=== PATIENT | female | born 1950 | race Caucasian/White ===

== ENCOUNTER 2016-09-29 12:36 | Observation (INO) | payer OTHER ==
[2016-09-29] MEDS ORDERED: Ondansetron INJ* 2 MG/ML VIAL IV ONE (13:31)
[2016-09-29] MEDS ORDERED: Pantoprazole IV* 40 MG IV ONE (13:31)
[2016-09-29] MEDS: NS 0.9% 1000 ML* 2,000 ML IV ONE (13:52)
[2016-09-29 13:56] LABS: Hematocrit 46 % (35-47); Hemoglobin 15.6 g/dl (12.0-16.0); Mean Corpuscular HGB Conc 34 g/dl (31-36); Mean Corpuscular Hemoglobin 30 pg (27-31); Mean Corpuscular Volume 89 fL (80-97); Mean Platelet Volume 8 um3 (7.4-10.4); Red Blood Count 5.18 10^6/ul (4.0-5.4); Red Cell Distribution Width 13 % (10.5-15)
[2016-09-29 14:09] LABS: Albumin 3.9 g/dL (3.2-5.2); C Reactive Protein 25.01 mg/L (< 5.00); Calcium 9.9 mg/dL (8.6-10.3); EGFR African American 70.9 (>60); EGFR Non-African American 55.1 (>60); Globulin 3.6 g/dL (2-4); Potassium 3.2 mmol/L (3.5-5.0); Total Bilirubin 1.3 mg/dL (0.2-1.0); Total Protein 7.5 g/dL (6.4-8.9)
[2016-09-29 15:29] LABS: Urine Bilirubin Negative (Negative); Urine Glucose Negative (Negative); Urine Nitrite Negative (Negative)
--- NOTE | 2016-09-29 15:45 | RAD ---
INDICATION: Abdominal pain. Bloody diarrhea. COMPARISON: August 02, 2014 CT. TECHNIQUE: Multidetector CT images were obtained from the lung bases to the ischial tuberosities. Oral contrast administered. Assessment of the visceral limited without IV contrast. REPORT: Unremarkable visualized inferior thorax. Negative for CT abnormality of the liver or gallbladder. Moderately atrophic pancreas. Unremarkable spleen. Negative for CT abnormality of the upper GI, small bowel, or retrocecal appendix. Enteric contrast extends to the mid transverse colon. Severe contiguous water density mural thickening of the splenic flexure of the colon through the mid descending segment. Negative for associated proximal bowel dilatation to indicate bowel obstruction. Negative for pneumatosis. Moderate associated perienteric inflammatory change. No perienteric abscess or free air. Trace ascites at the LEFT abdomen and cul-de-sac. Normal adrenal glands. Unremarkable kidneys and ureters. Incompletely distended urinary bladder without gross abnormality. Unremarkable uterus and adnexal regions. Small calcified portal caval lymph node. Negative for lymphadenopathy. Mild calcific plaque of normal diameter abdominal aorta and iliac arteries. Physiologic distention of the IVC. Small Schmorl node endplate herniations at the superior endplates of the L3 and L4 vertebral bodies. No suspicious focal osseous lesions. IMPRESSION: Severe contiguous water density mural thickening of the splenic flexure of the colon through the mid descending segment new compared with the prior exam. Consider infectious colitis as well as acute inflammatory bowel disease or ischemia. No skip areas to favor Crohn's disease.
--- NOTE | 2016-09-29 16:07 | ED ---
Milan Abdi Erika, scribed for Herminio Coffman MD on 09/29/16 at 1448 . GI/ HPI - HPI Summary HPI Summary: Patient is a 66-year-old female presenting to the ED with a CC of blood in stool. Patient reports that yesterday morning, she developed diffuse abdominal cramping 20 minutes after waking up. About 50 minutes after that, she had a large amount of diarrhea. Patient states she was able to tolerate some PO intake yesterday, but she continued to have diarrhea. Patient also reports chills and diaphoresis yesterday, but denies known fever. Last night, she developed blood in stool with clots. Patient reports some clots are large. She states that now, she is only passing blood, not stool, and she has had 4-5 episodes of this today. Patient does report nausea, and states she vomited 1x. She denies lightheadedness and urinary symptoms. Patient denies recent Abx use and denies household exposure to diarrheal illness. She does report she was in [facility] earlier this month. Patient states she does not take blood thinner. Hx HTN - takes medication. Hx asymptomatic hemorrhoids. PSHx tubal ligation. Patient reports her most recent colonoscopy showed diverticulosis without diverticulitis. - History of Current Complaint Chief Complaint: EDAbdPain Time Seen by Provider: 09/29/16 13:16 Stated Complaint: ABD PAIN, Hx Obtained From: Patient Onset/Duration: Started Days Ago - 1 day, Atraumatic, Still Present Timing: Constant Severity: Moderate Pain Intensity: 8 Location of Pain: Diffuse Pain Characteristics: Cramping Associated Signs and Symptoms: Positive: Nausea, Vomiting, Bright Red Blood w/ Stool, Diarrhea, Diaphoresis, Chills. Negative: Dysuria, Lightheadedness Aggravating Factor(s): Nothing Alleviating Factor(s): Nothing - Allergy/Home Medications Allergies/Adverse Reactions: Allergies Allergy/AdvReac Type Severity Reaction Status Date / Time Amoxicillin [From Augmentin] Allergy SEVERE Verified 12/21/15 09:25 YEAST INFECTION Clavulanic Acid Allergy SEVERE Verified 12/21/15 09:25 [From Augmentin] YEAST INFECTION Codeine Allergy ITCHY Verified 12/21/15 09:25 Shellfish Allergy Allergy Itching Verified 12/21/15 09:25 BANDAID Allergy IRRITATION Uncoded 12/21/15 09:25 PMH/Surg Hx/FS Hx/Imm Hx Cardiovascular History: Reports: Hx Hypertension - CONTROL WITH MEDS Denies: Hx Pacemaker/ICD GI History: Reports: Hx Diverticulosis, Hx Gastroesophageal Reflux Disease - CONTROL WITH MEDICATION Musculoskeletal History: Reports: Hx Arthritis, Other Musculoskeletal History - DEGENERATIVE DISC DISEASE Sensory History: Reports: Hx Cataracts - BILATERAL, Hx Contacts or Glasses - GLASSES Denies: Hx Hearing Aid Opthamlomology History: Reports: Hx Cataracts - BILATERAL, Hx Contacts or Glasses - GLASSES Psychiatric History: Reports: Hx Depression - HX OF IN THE PAST-NO PROBLEMS CURRENTLY - Cancer History Cancer Type, Location and Year: BREAST Hx Chemotherapy: Yes - 1999 RIGHT BREAST Hx Radiation Therapy: Yes - 1999 RIGHT, 2007 LEFT - Surgical History Surgery Procedure, Year, and Place: TONSILLECTOMY, [facility] [place]. BILATERAL TUBAL LIGATION, [facility] [place]. 1984 MALIGNANT MELANOMA REMOVED LEFT ARM, [facility] [place]. 1998 RIGHT BREAST MASTECTOMY, [facility] [place] 1999 RIGHT SENTINEL LYMPH NODE EXCISION (CHEMO AND RADIATION), [facility] [place]. 2007 LEFT BREAST LUMPECTOMY WITH SENTINEL LYMPH NODE REMOVAL ( RADIATION), [facility] [place]. 2005 BASIL CELL CARCINOMA REMOVED FROM VERTEX SCALP, [facility] [place]. BILATERAL KNEES ARTHROSCOPIC SURGERY TO REPAIR MENISCAL TEARS, [facility] [place] Hx Anesthesia Reactions: Yes - WAKE UP VERY COLD WITH GENERALS Infectious Disease History: Denies: Traveled Outside the [place] in Last 30 Days - Family History Known Family History: Positive: Other - Breast CA - Social History Occupation: Employed Full-time Alcohol Use: Daily Alcohol Amount: 1 DRINK/D Substance Use Type: Reports: None, Marijuana Substance Use Comment - Amount & Last Used: OCCASION Hx Tobacco Use: Yes Smoking Status (MU): Heavy Every Day Tobacco Smoker Type: Cigarettes Amount Used/How Often: 1 PPD FOR 50 YEARS Length of Time of Smoking/Using Tobacco: 50 YEARS Have You Smoked in the Last Year: Yes Review of Systems Positive: Chills, Skin Diaphoresis Gastrointestinal: Other - blood in stool Positive: Abdominal Pain - cramping, Vomiting, Diarrhea, Nausea Negative: burning, dysuria, frequency All Other Systems Reviewed And Are Negative: Yes Physical Exam Triage Information Reviewed: Yes Vital Signs On Initial Exam: Initial Vitals Temp Pulse Resp BP Pulse Ox 96.8 F 72 16 138/58 98 09/29/16 12:42 09/29/16 12:42 09/29/16 12:42 09/29/16 12:42 09/29/16 12:42 Vital Signs Reviewed: Yes Appearance: Positive: Well-Appearing, No Pain Distress Skin: Positive: Warm, Skin Color Reflects Adequate Perfusion, Dry Head/Face: Positive: Normal Head/Face Inspection Eyes: Positive: EOMI, VICKY ENT: Positive: Normal ENT inspection Neck: Positive: Supple, Nontender Respiratory/Lung Sounds: Positive: Clear to Auscultation, Breath Sounds Present Cardiovascular: Positive: RRR Abdomen Description: Positive: Nontender, Soft Bowel Sounds: Positive: Present Musculoskeletal: Positive: Normal, Strength/ROM Intact Neurological: Positive: Normal, Sensory/Motor Intact, Alert, Oriented to Person Place, Time Psychiatric: Positive: Affect/Mood Appropriate Diagnostics - Vital Signs Vital Signs Temp Pulse Resp BP Pulse Ox 09/29/16 12:42 96.8 F 72 16 138/58 98 - Laboratory Lab Results: Lab Results 09/29/16 09/29/16 09/29/16 Range/Units 13:45 13:45 13:45 WBC 13.0 H (3.5-10.8) 10^3/ul RBC 5.18 (4.0-5.4) 10^6/ul Hgb 15.6 (12.0-16.0) g/dl Hct 46 (35-47) % MCV 89 (80-97) fL MCH 30 (27-31) pg MCHC 34 (31-36) g/dl RDW 13 (10.5-15) % Plt Count 249 (150-450) 10^3/ul MPV 8 (7.4-10.4) um3 Neut % (Auto) 81.9 (38-83) % Lymph % (Auto) 12.3 L (25-47) % [place]hur % (Auto) 5.2 (1-9) % Eos % (Auto) 0.1 (0-6) % Baso % (Auto) 0.5 (0-2) % Absolute Neuts (auto) 10.6 H (1.5-7.7) 10^3/ul Absolute Lymphs (auto) 1.6 (1.0-4.8) 10^3/ul Absolute Monos (auto) 0.7 (0-0.8) 10^3/ul Absolute Eos (auto) 0 (0-0.6) 10^3/ul Absolute Basos (auto) 0.1 (0-0.2) 10^3/ul Absolute Nucleated RBC 0.01 10^3/ul Nucleated RBC % 0 INR (Anticoag Therapy) 0.94 (0.89-1.11) APTT 30.5 (26.0-36.3) seconds Sodium 128 L (133-145) mmol/L Potassium 3.2 L (3.5-5.0) mmol/L Chloride 94 L (101-111) mmol/L Carbon Dioxide 29 (22-32) mmol/L Anion Gap 5 (2-11) mmol/L BUN 16 (6-24) mg/dL Creatinine 1.00 H (0.51-0.95) mg/dL Est GFR ( Amer) 70.9 (>60) Est GFR (Non-Af Amer) 55.1 (>60) BUN/Creatinine Ratio 16.0 (8-20) Glucose 117 H (70-100) mg/dL Lactic Acid (0.5-2.0) mmol/L Calcium 9.9 (8.6-10.3) mg/dL Total Bilirubin 1.30 H (0.2-1.0) mg/dL AST 12 L (13-39) U/L ALT 15 (7-52) U/L Alkaline Phosphatase 89 (34-104) U/L C-Reactive Protein 25.01 H (< 5.00) mg/L Total Protein 7.5 (6.4-8.9) g/dL Albumin 3.9 (3.2-5.2) g/dL Globulin 3.6 (2-4) g/dL Albumin/Globulin Ratio 1.1 (1-3) Lipase 13 (11.0-82.0) U/L Urine Color Urine Appearance Urine pH (5-9) Ur Specific Jber (1.010-1.030) Urine Protein (Negative) Urine Ketones (Negative) Urine Blood (Negative) Urine Nitrate (Negative) Urine Bilirubin (Negative) Urine Urobilinogen (Negative) Ur Leukocyte Esterase (Negative) Urine Glucose (Negative) Urine Ascorbic Acid (Negative) Blood Type Antibody Screen 09/29/16 09/29/16 09/29/16 Range/Units 13:45 13:45 15:15 WBC (3.5-10.8) 10^3/ul RBC (4.0-5.4) 10^6/ul Hgb (12.0-16.0) g/dl Hct (35-47) % MCV (80-97) fL MCH (27-31) pg MCHC (31-36) g/dl RDW (10.5-15) % Plt Count (150-450) 10^3/ul MPV (7.4-10.4) um3 Neut % (Auto) (38-83) % Lymph % (Auto) (25-47) % [place] % (Auto) (1-9) % Eos % (Auto) (0-6) % Baso % (Auto) (0-2) % Absolute Neuts (auto) (1.5-7.7) 10^3/ul Absolute Lymphs (auto) (1.0-4.8) 10^3/ul Absolute Monos (auto) (0-0.8) 10^3/ul Absolute Eos (auto) (0-0.6) 10^3/ul Absolute Basos (auto) (0-0.2) 10^3/ul Absolute Nucleated RBC 10^3/ul Nucleated RBC % INR (Anticoag Therapy) (0.89-1.11) APTT (26.0-36.3) seconds Sodium (133-145) mmol/L Potassium (3.5-5.0) mmol/L Chloride (101-111) mmol/L Carbon Dioxide (22-32) mmol/L Anion Gap (2-11) mmol/L BUN (6-24) mg/dL Creatinine (0.51-0.95) mg/dL Est GFR ( Amer) (>60) Est GFR (Non-Af Amer) (>60) BUN/Creatinine Ratio (8-20) Glucose (70-100) mg/dL Lactic Acid 1.0 (0.5-2.0) mmol/L Calcium (8.6-10.3) mg/dL Total Bilirubin (0.2-1.0) mg/dL AST (13-39) U/L ALT (7-52) U/L Alkaline Phosphatase (34-104) U/L C-Reactive Protein (< 5.00) mg/L Total Protein (6.4-8.9) g/dL Albumin (3.2-5.2) g/dL Globulin (2-4) g/dL Albumin/Globulin Ratio (1-3) Lipase (11.0-82.0) U/L Urine Color Yellow Urine Appearance Clear Urine pH 7.0 (5-9) Ur Specific Jber 1.006 L (1.010-1.030) Urine Protein Negative (Negative) Urine Ketones Negative (Negative) Urine Blood Negative (Negative) Urine Nitrate Negative (Negative) Urine Bilirubin Negative (Negative) Urine Urobilinogen Negative (Negative) Ur Leukocyte Esterase Negative (Negative) Urine Glucose Negative (Negative) Urine Ascorbic Acid * H (Negative) Blood Type A Positive Antibody Screen Negative Result Diagrams: 09/29/16 13:45 09/29/16 13:45 Lab Statement: Any lab studies that have been ordered have been reviewed, and results considered in the medical decision making process. - CT CT A/P W/O CT Interpretation Completed By: Radiologist - IMPRESSION: Severe contiguous water density mural thickening of the splenic flexure of the colon through the mid descending segment new compared with the prior exam. Consider infectious colitis as well as acute inflammatory bowel disease or ischemia. No skip areas to favor Crohn's disease. GIGU Course/Dx - Course Course Of Treatment: NO CRITICAL CARE TIME Assessment/Plan: WELL IN ED. ADMIT HOSPITALIST STABLE. - Diagnoses Provider Diagnoses: GI bleed, Abdominal pain - Physician Notifications Discussed Care Of Patient With: Dr. Silva (hospitalist) at 16:04 - agrees to admit Discharge - Discharge Plan Condition: Stable Disposition: ADMITTED TO [facility] Referrals: Arturo Multani MD [Primary Care Provider] - The documentation as recorded by the Milan delacruz Erika accurately reflects the service I personally performed and the decisions made by me, Herminio Coffman MD.
[2016-09-29] MEDS ORDERED: metroNIDAZOLE IV 500 MG/100ML* 500 MG/100 ML BAG IVPB ONE (17:08)
[2016-09-29] MEDS ORDERED: Famotidine TAB* 20 MG PO PRN (17:29)
[2016-09-29] MEDS ORDERED: Nicotine GUM* 2 MG PO PRN (17:33)
[2016-09-29] MEDS ORDERED: Nicotine Inhaler* 10 MG AMP INH PRN (17:33)
[2016-09-29] MEDS ORDERED: Omeprazole CAP* 20 MG PO SCH (18:00)
[2016-09-29] MEDS ORDERED: metroNIDAZOLE IV 500 MG/100ML* 500 MG/100 ML BAG IVPB SCH (18:00)
--- NOTE | 2016-09-29 18:35 | HP ---
HOSPITAL MEDICINE HISTORY AND PHYSICAL: DATE OF ADMISSION: 09/29/16 PRIMARY CARE PHYSICIAN: Dr. Multani. ATTENDING PHYSICIAN: Dr. Gibran Silva* (dictation provided by Ashley Ghotra NP). CHIEF COMPLAINT: Diarrhea. HISTORY OF PRESENT ILLNESS: Ms. Martinez is a 66-year-old female with a past medical history of hypertension and diverticulosis, who presents today to the hospital with concern for abdominal cramping and diarrhea. Ms. Martinez states she was in her normal health on Saturday. She has had no antibiotic use in the past 6 months or longer. She has had no recent sick contacts. On Saturday morning, shortly after getting up, she developed abdominal cramping and then severe diarrhea. She stayed home from work and had diarrhea throughout the day , in between taking short naps. By the end of the day before bed, she was having blood clots in her stool. Ms. Martinez states that today she has continued to have diarrhea with blood in the stool. The stool was very watery. She has cramping in the abdomen associated with the diarrhea. She has no other symptoms including chest pain or shortness of breath. She did have nausea with vomiting x1 yesterday. She has been able to eat a small amount of oral intake including a couple of slices of toast.She went to see Dr. Haley but was assessed there and ultimately referred to the emergency room for further evaluation and treatment. In the emergency room, Ms. Martinez had labs which showed a white blood cell count mildly elevated at 13.0. She is hyponatremic with a sodium of 128 and hypokalemic with a potassium of 3.2. Her C-reactive protein is only 25.01. Her lactic acid is 1. She has stool cultures sent which did show positive C. diff. A CT of the abdomen and pelvis shows extensive mural thickening in the colon. The patient's vital signs are stable. PAST MEDICAL HISTORY: 1. Diverticulosis. 2. GERD. 3. Hypertension. 4. History of bilateral knee arthroscopy. 5. History of right mastectomy with right lymph node dissection for breast cancer as well as a left lumpectomy and removal. MEDICATIONS: 1. Calcium carbonate 1 tab p.o. q.p.m. 2. Hydrochlorothiazide 25 mg p.o. q.a.m. 3. Losartan 100 mg p.o. q.a.m. 4. Multivitamin with mineral 2 tabs p.o. q.p.m. 5. Amlodipine 7.5 mg p.o. q.p.m. 6. Famotidine 20 mg p.o. daily. 7. Metoprolol tartrate 25 mg p.o. b.i.d. 8. Pantoprazole 40 mg p.o. q.p.m. ALLERGIES: To AMOXICILLIN, CLAVULANIC ACID, CODEINE, SHELLFISH. SOCIAL HISTORY: The patient is a pack-a-day smoker. She reports drinking only 1 drink per day. No report of drug use and she lives alone and states that her son, Aurelio, would be the healthcare proxy. REVIEW OF SYSTEMS: A 14-point review of systems was completed with Ms. Dalila Oconnor and all those not mentioned above were negative. PHYSICAL EXAMINATION GENERAL: Ms. Martinez is sitting in the bed. She is in no acute distress. She is calm and cooperative to my examination. VITAL SIGNS: Temperature 98.4, heart rate 65, respiratory rate 18, O2 saturation 98% on room air, blood pressure 151/74. LUNGS: Clear to auscultation bilaterally with no accessory muscle use and good aeration. HEART: S1, S2. No murmur, rub, or gallop, and regular. ABDOMEN: The patient has some mild tenderness in her abdomen, but it is soft and the tenderness is generalized. Bowel sounds are positive. EXTREMITIES: No cyanosis or edema. NEURO: She is alert. She is oriented x3. She moves all extremities equally. There is no facial asymmetry or focal weakness. Extraocular movements are intact. SKIN: Intact. DIAGNOSTIC STUDIES/LAB DATA: Sodium 128, potassium 3.2, chloride 94, serum bicarbonate 29, BUN 16, creatinine 1.00, glucose 117, lactic acid 1.0. CRP 25.01. WBC 13.0, hemoglobin 15.6, hematocrit 46, platelet count 249. INR 0.94. Urine shows no evidence of infection. Stool culture shows organism 1 negative and organism 2 positive for C. diff with positive occult blood. CT abdomen and pelvis is read as follows: "Severe contiguous water density mural thickening of the splenic flexure of the colon through the mid descending segment, new compared with the prior exam. Consider infectious colitis as well as acute inflammatory bowel disease or ischemia. No skip areas to suggest Crohn 's disease." ASSESSMENT AND PLAN: Ms. Martinez is a 66-year-old female with a past medical history of hypertension and diverticulosis, who presents today to the hospital with concern for bloody diarrhea with cramping. In the emergency room, she has been found to be positive for Clostridium difficile. Our plans are as follows: 1. Clostridium difficile: Her diarrhea does not appear to be signficant at this point as she has had one bowel movement in the ED today. Her CT scan though is concerning for significant mural thickening and bloody diarrhea. Plan is for observation overnight for initiation of Flagyl, which we will begin intravenously. She has not had significant nausea and vomiting, but I would like to continue with intravenous through the night and she can switch to oral medications tomorrow if she is doing well. We will continue with IV fluids. 2. Hypertension: Plan to hold losartan, hydrochlorothiazide, and amlodipine, but we will continue her on metoprolol. If her blood pressure is high, we can resume other agents, but I would like to be cautious in the setting of significant diarrhea and illness. 3. Gastroesophageal reflux disease: Continue pantoprazole and Pepcid. 4. DVT prophylaxis with heparin subcu. 5. Disposition to medical floor. TIME SPENT: Approximately 60 minutes was spent on the admission of this patient , more than half time spent with her at the bedside reviewing the events leading up to this hospitalization, performing the physical examination, and reviewing my plan of care. ASHLEY GHOTRA NP CC: Dr. Multani* [id number]/CPS #: [id number] MICHAEL
[2016-09-29] MEDS: KCL 10 MEQ/50 ML IVPREMIX* 10 MEQ/50 ML BAG IV SCH ×2 (18:41→20:28)
[2016-09-29] MEDS: Nicotine PATCH 21 MG/24 HR* PATCH TRANSDERM SCH (18:41)
[2016-09-29] MEDS: LACTASE ENZYME 3000 UNIT PO SCH (19:47)
[2016-09-29] MEDS ORDERED: Lactase Enzyme (NF) 9,000 UNIT TAB PO SCH (20:00)
[2016-09-29] MEDS ORDERED: Nicotine Patch Removal NOTE PATCH OFF SCH (21:00)
[2016-09-29] MEDS: Metoprolol Tartrate TAB* 25 MG PO SCH (22:13)
[2016-09-29] MEDS: Preservision Areds(NF) CAP PO SCH (22:13)
[2016-09-30] MEDS: metroNIDAZOLE IV 500 MG/100ML* 500 MG/100 ML BAG IVPB SCH ×2 (00:31→08:24)
[2016-09-30 07:59] LABS: Hematocrit 41 % (35-47); Hemoglobin 13.9 g/dl (12.0-16.0); Mean Corpuscular HGB Conc 34 g/dl (31-36); Mean Corpuscular Hemoglobin 30 pg (27-31); Mean Corpuscular Volume 90 fL (80-97); Mean Platelet Volume 8 um3 (7.4-10.4); Red Blood Count 4.57 10^6/ul (4.0-5.4); Red Cell Distribution Width 13 % (10.5-15); White Blood Count 14.3 10^3/ul (3.5-10.8)
[2016-09-30 08:18] LABS: Calcium 9.2 mg/dL (8.6-10.3); EGFR African American 95.9 (>60); EGFR Non-African American 74.5 (>60); Potassium 3.8 mmol/L (3.5-5.0)
[2016-09-30] MEDS: LACTASE ENZYME 3000 UNIT PO SCH (08:23)
[2016-09-30] MEDS: Preservision Areds(NF) CAP PO SCH (08:23)
[2016-09-30] MEDS: Metoprolol Tartrate TAB* 25 MG PO SCH (08:23)
[2016-09-30] MEDS: Nicotine PATCH 21 MG/24 HR* PATCH TRANSDERM SCH (09:43)
--- NOTE | 2016-09-30 10:02 | DCNOTE ---
Subjective Date of Service: 09/30/16 Interval History: Feels better. Good appetite, ate most of the last 2 meals. No nausea. Mild abd cramps, better than yesterday. Still a few small, loose, reddish BM's, no clots. Anxious to go home. Objective Active Medications: Famotidine (Pepcid Tab*) 20 mg PO DAILY PRN PRN Reason: UNRELIEVED ACID REFLUX Metronidazole/Sodium Chloride (Flagyl 500 Mg Ivpb*) 500 mg in 100 mls @ 100 mls /hr IVPB 0100,0900,1700 [facility] Last Admin: 09/30/16 08:24 Dose: 100 mls/hr Lactase (Lactaid Fast Act (Nf)) 9,000 unit PO TID WITH MEALS [facility] Last Admin: 09/30/16 08:23 Dose: 9,000 unit Metoprolol Tartrate (Lopressor Tab*) 25 mg PO BID [facility] Last Admin: 09/30/16 08:23 Dose: 25 mg Multivitamins/Minerals (Preservision Areds(Multivitamins/Mineral)(Nf)) 1 cap PO BID [facility] Last Admin: 09/30/16 08:23 Dose: 1 cap Nicotine (Nicotine Inhaler*) 10 mg INH Q2H PRN PRN Reason: CRAVING Nicotine (Nicotine Patch 21 Mg/24 Hr*) 1 patch TRANSDERM Q24HR [facility] Last Admin: 09/30/16 09:43 Dose: Not Given Nicotine Polacrilex (Nicotine Gum*) 2 mg PO Q2H PRN PRN Reason: CRAVING Omeprazole (Prilosec Cap*) 20 mg PO QPM [facility] Last Admin: 09/29/16 18:41 Dose: 20 mg Pharmacy Profile Note (Nicotine Patch Removal Note*) 1 note PATCH OFF 2100 [facility] Last Admin: 09/29/16 22:15 Dose: 1 note Vital Signs 09/29/16 09/29/16 09/29/16 18:25 19:23 20:01 Temperature 98.5 F 98.5 F 98.3 F Pulse Rate 61 61 59 Respiratory 20 20 20 Rate Blood Pressure 129/54 129/54 126/66 (mmHg) O2 Sat by Pulse 99 99 96 Oximetry 09/30/16 09/30/16 00:32 04:20 Temperature 98.6 F 98.6 F Pulse Rate 63 68 Respiratory 20 20 Rate Blood Pressure 125/61 108/73 (mmHg) O2 Sat by Pulse 96 94 Oximetry Oxygen Devices in Use Now: None Appearance: Alert, sitting up in bed. In good spirits. Looks well. Eyes: No Scleral Icterus Neck: NL Appearance and Movements; NL JVP, No Thyroid Enlargement, Masses Respiratory: Symmetrical Chest Expansion and Respiratory Effort, Clear to Auscultation, Clear to Percussion Cardiovascular: NL Sounds; No Murmurs; No JVD, RRR, No Edema, - Abdominal: NL Sounds; No Tenderness; No Distention, No Hepatosplenomegaly, - Extremities: No Edema, No Clubbing, Cyanosis, - Skin: No Rash or Ulcers, No Nodules or Sclerosis, - Neurological: Alert and Oriented x 3, NL Sensation Result Diagrams: 09/30/16 07:25 09/30/16 07:25 Additional Lab and Data: Lab Results 09/29/16 09/29/16 09/29/16 Range/Units 13:45 13:45 13:45 WBC 13.0 H (3.5-10.8) 10^3/ul RBC 5.18 (4.0-5.4) 10^6/ul Hgb 15.6 (12.0-16.0) g/dl Hct 46 (35-47) % MCV 89 (80-97) fL MCH 30 (27-31) pg MCHC 34 (31-36) g/dl RDW 13 (10.5-15) % Plt Count 249 (150-450) 10^3/ul MPV 8 (7.4-10.4) um3 Neut % (Auto) 81.9 (38-83) % Lymph % (Auto) 12.3 L (25-47) % [place] % (Auto) 5.2 (1-9) % Eos % (Auto) 0.1 (0-6) % Baso % (Auto) 0.5 (0-2) % Absolute Neuts (auto) 10.6 H (1.5-7.7) 10^3/ul Absolute Lymphs (auto) 1.6 (1.0-4.8) 10^3/ul Absolute Monos (auto) 0.7 (0-0.8) 10^3/ul Absolute Eos (auto) 0 (0-0.6) 10^3/ul Absolute Basos (auto) 0.1 (0-0.2) 10^3/ul Absolute Nucleated RBC 0.01 10^3/ul Nucleated RBC % 0 INR (Anticoag Therapy) 0.94 (0.89-1.11) APTT 30.5 (26.0-36.3) seconds Sodium 128 L (133-145) mmol/L Potassium 3.2 L (3.5-5.0) mmol/L Chloride 94 L (101-111) mmol/L Carbon Dioxide 29 (22-32) mmol/L Anion Gap 5 (2-11) mmol/L BUN 16 (6-24) mg/dL Creatinine 1.00 H (0.51-0.95) mg/dL Est GFR ( Amer) 70.9 (>60) Est GFR (Non-Af Amer) 55.1 (>60) BUN/Creatinine Ratio 16.0 (8-20) Glucose 117 H (70-100) mg/dL Lactic Acid (0.5-2.0) mmol/L Calcium 9.9 (8.6-10.3) mg/dL Total Bilirubin 1.30 H (0.2-1.0) mg/dL AST 12 L (13-39) U/L ALT 15 (7-52) U/L Alkaline Phosphatase 89 (34-104) U/L C-Reactive Protein 25.01 H (< 5.00) mg/L Total Protein 7.5 (6.4-8.9) g/dL Albumin 3.9 (3.2-5.2) g/dL Globulin 3.6 (2-4) g/dL Albumin/Globulin Ratio 1.1 (1-3) Lipase 13 (11.0-82.0) U/L Urine Color Urine Appearance Urine pH (5-9) Ur Specific [place] (1.010-1.030) Urine Protein (Negative) Urine Ketones (Negative) Urine Blood (Negative) Urine Nitrate (Negative) Urine Bilirubin (Negative) Urine Urobilinogen (Negative) Ur Leukocyte Esterase (Negative) Urine Glucose (Negative) Urine Ascorbic Acid (Negative) Blood Type Antibody Screen 09/29/16 09/29/16 09/29/16 Range/Units 13:45 13:45 15:15 WBC (3.5-10.8) 10^3/ul RBC (4.0-5.4) 10^6/ul Hgb (12.0-16.0) g/dl Hct (35-47) % MCV (80-97) fL MCH (27-31) pg MCHC (31-36) g/dl RDW (10.5-15) % Plt Count (150-450) 10^3/ul MPV (7.4-10.4) um3 Neut % (Auto) (38-83) % Lymph % (Auto) (25-47) % [place] % (Auto) (1-9) % Eos % (Auto) (0-6) % Baso % (Auto) (0-2) % Absolute Neuts (auto) (1.5-7.7) 10^3/ul Absolute Lymphs (auto) (1.0-4.8) 10^3/ul Absolute Monos (auto) (0-0.8) 10^3/ul Absolute Eos (auto) (0-0.6) 10^3/ul Absolute Basos (auto) (0-0.2) 10^3/ul Absolute Nucleated RBC 10^3/ul Nucleated RBC % INR (Anticoag Therapy) (0.89-1.11) APTT (26.0-36.3) seconds Sodium (133-145) mmol/L Potassium (3.5-5.0) mmol/L Chloride (101-111) mmol/L Carbon Dioxide (22-32) mmol/L Anion Gap (2-11) mmol/L BUN (6-24) mg/dL Creatinine (0.51-0.95) mg/dL Est GFR ( Amer) (>60) Est GFR (Non-Af Amer) (>60) BUN/Creatinine Ratio (8-20) Glucose (70-100) mg/dL Lactic Acid 1.0 (0.5-2.0) mmol/L Calcium (8.6-10.3) mg/dL Total Bilirubin (0.2-1.0) mg/dL AST (13-39) U/L ALT (7-52) U/L Alkaline Phosphatase (34-104) U/L C-Reactive Protein (< 5.00) mg/L Total Protein (6.4-8.9) g/dL Albumin (3.2-5.2) g/dL Globulin (2-4) g/dL Albumin/Globulin Ratio (1-3) Lipase (11.0-82.0) U/L Urine Color Yellow Urine Appearance Clear Urine pH 7.0 (5-9) Ur Specific [place] 1.006 L (1.010-1.030) Urine Protein Negative (Negative) Urine Ketones Negative (Negative) Urine Blood Negative (Negative) Urine Nitrate Negative (Negative) Urine Bilirubin Negative (Negative) Urine Urobilinogen Negative (Negative) Ur Leukocyte Esterase Negative (Negative) Urine Glucose Negative (Negative) Urine Ascorbic Acid * H (Negative) Blood Type A Positive Antibody Screen Negative Assess/Plan/Problems-Billing Assessment: - Patient Problems (1) GI bleed Current Visit: Yes Status: Acute Code(s): K92.2 - GASTROINTESTINAL HEMORRHAGE, UNSPECIFIED SNOMED Code(s): 39237211 Comment: I suspect she has viral gastroenteritis and is a carrier of C. difficile, but cannot be sure and will treat for C. difficile colitis. 13 more days po metronidazole rx'd. Pt advised no alcohol while on med. Pt has regular screening colonoscopies, no change in schedule unless GI sx' not resolving as expected. Fup Dr. Multani. (2) HTN (hypertension) Current Visit: Yes Status: Acute Code(s): I10 - ESSENTIAL (PRIMARY) HYPERTENSION SNOMED Code(s): 96799177 Comment: Pt to continue metoprolol, resume losartan 10/01. Hold amlodipine and thiazide until further medical fup. (3) Tobacco abuse Current Visit: Yes Status: Acute Code(s): Z72.0 - TOBACCO USE SNOMED Code( s): 242324973 Comment: Pt advised to quit smoking and avoid second hand smoke. She is not interested in quitting.
[2016-09-30 10:28] VITALS: BP 120/56
--- NOTE | 2016-09-30 13:21 | DS ---
DISCHARGE SUMMARY: DATE OF ADMISSION: DATE OF DISCHARGE: 09/30/16 HISTORY OF PRESENT ILLNESS: This 66-year-old woman presented with diarrhea with blood in her stool. She became ill on September 28. She stated this was on waking up in the morning, she stayed home from work. She had diarrhea throughout the day, by the end of the day, she was having blood clots in her stools. She had mild-to- moderate abdominal cramping. She did vomit at least once at home, but did not vomit after coming to the emergency room. She saw associate, Dr. Haley, and was referred to the emergency room. Rest of the history and physical exam was detailed in the admission note. The patient was treated with intravenous metronidazole and intravenous fluids. Her clinical condition improved in the hospital. She had very mild abdominal cramping on discharge. She was having a few loose stools, somewhat reddish. Her temperature never went above 99 in the hospital. She had no chills or sweats here. She ate the major portion of her last 2 meals in the hospital and had a good appetite with no nausea. Her white blood count on the day of discharge was 14.3. CT scan did show severe mucosal edema around splenic flexure. Her hematocrit fell from 46 to 41 while in the hospital, her hemoglobin fell from 15.6 to 13.9. The latter values consistent with her old laboratory values. Her stool did test positive for toxigenic Clostridium difficile. The patient has had no antibiotics in the past 6 months. There has been a lot of endemic gastroenteritis in [facility]. I suspect this is a viral gastroenteritis and the C. difficile is indicative of a carrier state, however, cannot be sure that she does not have C. difficile colitis and so that would be the only treatable diagnosis, I am treating her for such. She did get intravenous metronidazole in the hospital and will continue with 13 days of oral metronidazole 500 mg t.i.d. Her blood pressure on the day of discharge is 108/73. She states she took all 4 of her blood pressure medications on 09/30/16 before coming to the hospital. She only got metoprolol while in the hospital. I have told her to resume her losartan on October 01, but to hold off on the thiazide and amlodipine until she has her next medical evaluation. FINAL DIAGNOSES: 1. Bloody diarrhea, to treat a viral gastroenteritis or Clostridium difficile. 2. Hypertension. 3. Tobacco use disorder. DISCHARGE MEDICATIONS: 1. Metronidazole 500 mg t.i.d. for 13 days. 2. Metoprolol 25 mg b.i.d. 3. Losartan 100 mg daily. 4. Calcium carbonate 1 tab with vitamin D 1 tablet every evening. 5. Multivitamin with mineral 1 b.i.d. 6. Pantoprazole 40 mg in the evening. 7. Famotidine 20 mg daily p.r.n. CC: Dr. Multani; Dr. Mi * [id number]/[facility] #: [id number] MTDD
== END 2016-09-30 11:50 | disposition home or self-care (01) ==
LOC: ED 12:36 → MEDTELE 17:08
PROVIDERS: ADMIT Internal Medicine; ATTEND Internal Medicine
DX: K92.1 Melena (principal); R19.7 Diarrhea, unspecified; I10 Essential (primary) hypertension; K57.90 Diverticulosis of intestine, part unspecified, without perforation or abscess without bleeding; K21.9 Gastro-esophageal reflux disease without esophagitis; Z79.899 Other long term (current) drug therapy; Z88.8 Allergy status to other drugs, medicaments and biological substances; F17.210 Nicotine dependence, cigarettes, uncomplicated
CPT/HCPCS: 36415; 74176; 80048; 80053; 81003; 82270; 83605; 83630; 83690; 85025; 85610; 85730; 86140; 86850; 86900; 86901; 87045; 87046; 87077; 87328; 87329; 87493; 87899; 96361; 96365; 96366; 96367; 96375; 99283; A9270-GY; G0378; J2405; J3480

== ENCOUNTER 2023-12-20 12:02 | Inpatient (IN) ==
[2023-12-20 15:56] LABS: Hematocrit 46.5 % (35-45); Hemoglobin 15.5 g/dL (11.5-14.3); Mean Corpuscular Hemoglobin 29.9 pg (27-33); Mean Corpuscular Hgb Conc 33.3 g/dL (31-36); Mean Corpuscular Volume 89.8 fL (80-97); Mean Platelet Volume 8.1 fL (7.5-11.2); Platelet Count 282 10^3/uL (150-450); Red Blood Count 5.17 10^6/uL (3.63-4.92); Red Cell Distribution Width 13.6 % (12-17); White Blood Count 25.2 10^3/uL (3.8-11.8)
[2023-12-20 16:16] LABS: INR 1.02 (0.83-1.13)
[2023-12-20 16:43] LABS: ABS Basophils 0.1 10^3/uL (0.0-0.1); ABS Monocytes 1.3 10^3/uL (0.0-0.9); ABS Neutrophils 22.8 10^3/uL (1.5-7.6); ABS Nucleated RBC 0.01 10^3/ul; Lymphocyte % 3.9 %
[2023-12-20] MEDS: NS 0.9% 1000 ml BAG 1,000 ML IV ONE ×2 (16:53→19:20)
[2023-12-20 16:58] LABS: Urine Appearance Turbid; Urine Bilirubin Negative (Negative); Urine Blood Negative (Negative); Urine Color Yellow; Urine Glucose Negative (Negative); Urine Ketones Negative (Negative); Urine Nitrite Negative (Negative); Urine Protein 2+ (>=100 mg/dL) (Negative); Urine Specific Gravity 1.024 (1.002-1.030); Urine Urobilinogen Negative (Negative); Urine pH 6.5 (5.0-8.0)
[2023-12-20 17:00] LABS: Albumin 4.3 g/dL (3.2-5.2); Albumin/Globulin Ratio 1.3 (1-3); C Reactive Protein 85.22 mg/L (<8.01); Calcium 10.1 mg/dL (8.6-10.3); Creatinine, Serum 1.02 mg/dL (0.51-0.95); Globulin 3.2 g/dL (2-4); Potassium 4.3 mmol/L (3.5-5.0); Total Bilirubin 1.3 mg/dL (0.2-1.0); Total Protein 7.5 g/dL (6.4-8.9); eGFR CKD-EPI 57.4 (>60)
[2023-12-20 17:11] LABS: Urine Bacteria 1+ /HPF (Absent); Urine Red Blood Cell 2+(6-10/hpf) /HPF (0-Trace); Urine Squamous Epithelial Cell Present /HPF (Absent); Urine White Blood Cell Trace(0-5/hpf) /HPF (0-Trace)
[2023-12-20] MEDS: Iodixanol (CONTRAST) 320 MG/ML 100 ML SDV IV ONE (19:08)
[2023-12-20] MEDS ORDERED: Vancomycin 1,750 MG in NS 0.9% 250 ml 250 ML IVPB SCH (22:00)
[2023-12-20] MEDS ORDERED: Nicotine Lozenge mini 4 MG LOZNG.MINI MT PRN (22:20)
[2023-12-20] MEDS: Piperacillin/Tazobac 3.375 BAG 3.375 GM/100 ML BAG IV ONE (23:05)
[2023-12-20] MEDS: Vancomycin 1,750 MG in NS 0.9% 500 ml BAG 500 ML IVPB ONE (23:40)
[2023-12-20] MEDS ORDERED: Zosyn per Pharmacy NOTE FOLLOW UP SCH (23:45)
[2023-12-21] MEDS: ZOSYN 3.375 GM Q8H per EXTENDED INFUSION IV SCH (03:54)
[2023-12-21 04:32] LABS: ABS Basophils 0.1 10^3/uL (0.0-0.1); ABS Lymphocytes 1.2 10^3/uL (1.0-4.8); ABS Monocytes 0.8 10^3/uL (0.0-0.9); ABS Neutrophils 16.3 10^3/uL (1.5-7.6); ABS Nucleated RBC 0.01 10^3/ul; Eosinophil % 0.1 %; Hemoglobin 13.5 g/dL (11.5-14.3); Lymphocyte % 6.6 %; Mean Corpuscular Hemoglobin 30.7 pg (27-33); Mean Corpuscular Hgb Conc 33.6 g/dL (31-36); Mean Corpuscular Volume 91.4 fL (80-97); Mean Platelet Volume 8.3 fL (7.5-11.2); Nucleated Red Blood Cells % 0.1 %/100WBC (0.0-0.8); Platelet Count 210 10^3/uL (150-450); Red Blood Count 4.38 10^6/uL (3.63-4.92); Red Cell Distribution Width 13.8 % (12-17); White Blood Count 18.3 10^3/uL (3.8-11.8)
[2023-12-21 06:10] LABS: Calcium 7.4 mg/dL (8.6-10.3); Creatinine, Serum 0.89 mg/dL (0.51-0.95); Potassium 3.5 mmol/L (3.5-5.0); eGFR CKD-EPI 67.6 (>60)
[2023-12-21] MEDS ORDERED: Lactated Ringers 1000 ml BAG 1,000 ML IV SCH (12:00)
[2023-12-21] MEDS: NS 0.9% 1000 ml BAG 1,000 ML IV SCH (12:03)
[2023-12-21 14:57] LABS: Hemoglobin 12.1 g/dL (11.5-14.3)
[2023-12-22 06:11] LABS: ABS Lymphocytes 1.4 10^3/uL (1.0-4.8); ABS Monocytes 0.7 10^3/uL (0.0-0.9); ABS Neutrophils 12.7 10^3/uL (1.5-7.6); ABS Nucleated RBC 0.01 10^3/ul; Eosinophil % 0.2 %; Hematocrit 34.5 % (35-45); Hemoglobin 12.1 g/dL (11.5-14.3); Lymphocyte % 9.6 %; Mean Corpuscular Hemoglobin 32.6 pg (27-33); Mean Corpuscular Hgb Conc 35.1 g/dL (31-36); Mean Corpuscular Volume 92.8 fL (80-97); Mean Platelet Volume 8.4 fL (7.5-11.2); Platelet Count 175 10^3/uL (150-450); Red Blood Count 3.72 10^6/uL (3.63-4.92); Red Cell Distribution Width 13.6 % (12-17); White Blood Count 14.9 10^3/uL (3.8-11.8)
[2023-12-22 06:18] LABS: Albumin 2.9 g/dL (3.2-5.2); Albumin/Globulin Ratio 1.2 (1-3); Calcium 8.3 mg/dL (8.6-10.3); Creatinine, Serum 0.74 mg/dL (0.51-0.95); Globulin 2.4 g/dL (2-4); Potassium 3.5 mmol/L (3.5-5.0); Total Bilirubin 1.3 mg/dL (0.2-1.0); Total Protein 5.3 g/dL (6.4-8.9); eGFR CKD-EPI 84.3 (>60)
[2023-12-22] MEDS: cefTRIAXone 1 gm/50 mL D5W 1 GM/50 ML BAG IV SCH (09:31)
[2023-12-22] MEDS: metroNIDAZOLE IV 500 MG/100ML 500 MG/100 ML BAG IVPB SCH (10:23)
[2023-12-23 07:00] LABS: ABS Eosinophils 0.1 10^3/uL (0.0-0.5); ABS Lymphocytes 1.6 10^3/uL (1.0-4.8); ABS Monocytes 0.9 10^3/uL (0.0-0.9); Eosinophil % 0.9 %; Hemoglobin 13.1 g/dL (11.5-14.3); Lymphocyte % 11.7 %; Mean Corpuscular Hemoglobin 30.9 pg (27-33); Mean Corpuscular Hgb Conc 34.4 g/dL (31-36); Mean Corpuscular Volume 89.8 fL (80-97); Mean Platelet Volume 8.7 fL (7.5-11.2); Platelet Count 211 10^3/uL (150-450); Red Blood Count 4.24 10^6/uL (3.63-4.92); Red Cell Distribution Width 13.6 % (12-17); White Blood Count 13.6 10^3/uL (3.8-11.8)
[2023-12-23 16:23] LABS: Hematocrit 36.4 % (35-45); Hemoglobin 12.2 g/dL (11.5-14.3)
[2023-12-23] MEDS: Lactated Ringers 1000 ml BAG 1,000 ML IV SCH (17:51)
[2023-12-24 06:26] LABS: Hematocrit 34.5 % (35-45); Mean Corpuscular Hemoglobin 31.1 pg (27-33); Mean Corpuscular Hgb Conc 34.7 g/dL (31-36); Mean Corpuscular Volume 89.5 fL (80-97); Mean Platelet Volume 7.9 fL (7.5-11.2); Platelet Count 228 10^3/uL (150-450); Red Blood Count 3.85 10^6/uL (3.63-4.92); Red Cell Distribution Width 13.2 % (12-17); White Blood Count 10.6 10^3/uL (3.8-11.8)
[2023-12-24 07:03] LABS: Calcium 8.3 mg/dL (8.6-10.3); Creatinine, Serum 0.74 mg/dL (0.51-0.95); Potassium 3.5 mmol/L (3.5-5.0); eGFR CKD-EPI 84.3 (>60)
[2023-12-24] MEDS ORDERED: fentaNYL 100 mcg/2 ml 50 MCG/ML VIAL ONE (17:36)
[2023-12-24] MEDS ORDERED: Midazolam 10 mg/10 ml VIAL 1 mg/ml 10 ml VIAL (10 mg) ONE (17:36)
[2023-12-25 06:19] LABS: ABS Eosinophils 0.1 10^3/uL (0.0-0.5); ABS Lymphocytes 1.1 10^3/uL (1.0-4.8); ABS Neutrophils 9.5 10^3/uL (1.5-7.6); ABS Nucleated RBC 0.01 10^3/ul; Eosinophil % 0.5 %; Hematocrit 38.1 % (35-45); Lymphocyte % 9.3 %; Mean Corpuscular Hemoglobin 30.5 pg (27-33); Mean Corpuscular Hgb Conc 34.1 g/dL (31-36); Mean Corpuscular Volume 89.4 fL (80-97); Platelet Count 262 10^3/uL (150-450); Red Blood Count 4.26 10^6/uL (3.63-4.92); Red Cell Distribution Width 13.1 % (12-17); White Blood Count 11.7 10^3/uL (3.8-11.8)
[2023-12-25 07:02] LABS: Calcium 8.6 mg/dL (8.6-10.3); Creatinine, Serum 0.74 mg/dL (0.51-0.95); Potassium 3.5 mmol/L (3.5-5.0); eGFR CKD-EPI 84.3 (>60)
[2023-12-25 14:32] VITALS: BP 137/67
== END 2023-12-25 17:25 | disposition home or self-care (01) | DRG 394 ==
LOC: ED 12:02 → EDHOLD 12:02 → INTOOBSV 23:04 → OBSVTOIN 23:04 → SUATTDRO 23:04 → MEDTELE 12-21 07:13 → MED 12-21 07:28
PROVIDERS: ADMIT Internal Medicine; ATTEND Internal Medicine